=== PATIENT | female | born 1960 | race Caucasian/White ===

== ENCOUNTER 2019-07-07 16:41 | Inpatient (IN) | payer MEDICAID ==
[~2019-07-07] VITALS: Ht 162.6 cm; Wt 136.0 kg
[2019-07-07 18:14] LABS: Basophils # (auto) 0 uL; Basophils % (auto) 0.3 % (0.0-2.0); Eosinophils # (auto) 0.2 uL; Eosinophils % (auto) 3.1 % (0.0-7.0); Hematocrit 47.8 % (36.0-46.0); Lymphocytes # (auto) 1.3 uL; Lymphocytes % (auto) 16.5 % (10.0-50.0); Mean Corpuscular Hemoglobin 29.9 pg (28.0-32.0); Mean Corpuscular Hgb Conc. 33.5 g/dL (32.0-36.0); Mean Corpuscular Volume 89.3 fL (80.0-100.0); Monocytes # (auto) 0.7 uL; Neutrophils # (auto) 5.5 uL; Neutrophils % (auto) 71.1 % (37.0-80.0); Platelet Count (auto) 233 10^3/uL (140-450); Red Blood Cells 5.36 10^6/uL (4.0-5.20); Red Cell Distribution Width 14.8 % (11.8-14.3); White Blood Cell 7.8 10^3/uL (4.4-10.8)
[2019-07-07 18:25] LABS: BUN/Creatinine Ratio 17.2; Calcium 8.8 mg/dL (8.5-10.1); Potassium 4.3 mmol/L (3.5-5.1)
[2019-07-07 18:28] LABS: Bilirubin, Total 0.4 mg/dL (0.2-1.0); Total Protein 7.4 g/dL (6.4-8.2)
[2019-07-07] MEDS ORDERED: FUROSEMIDE 40 MG/4 ML VIAL IV ONE (20:00)
[2019-07-07] MEDS ORDERED: ALBUTEROL SULF 2.5 MG/0.5ML(0.5%) NEB SOLN NEB ONE (20:15)
[2019-07-07] MEDS ORDERED: IPRATROPIUM BROM 0.5 MG/2.5ML INH SOL NEB ONE (20:15)
[2019-07-07] MEDS ORDERED: LEVOFLOXACIN 500MG 100 ML IV ONE (21:45)
[2019-07-07 22:05] LABS: Urine Bacteria NONE SEEN /hpf (None Seen); Urine Blood Negative /uL (Negative); Urine Specific Gravity 1.022 (1.001-1.035); Urine WBC 1 /hpf (0 - 5)
[2019-07-07 22:22] LABS: INR 1.04 (0.9-1.15); Partial Thromboplastin Time 27.9 sec (23.64-32.05)
[2019-07-07] MEDS ORDERED: IOHEXOL 350 MG/ML 100ML IJ ONE (22:45)
[2019-07-08] MEDS ORDERED: ALBUTEROL SULF 2.5 MG/0.5ML(0.5%) NEB SOLN NEB ONE (01:30)
[2019-07-08] MEDS ORDERED: methylPREDNISolone SOD SUCC 125 MG/2 ML VL IV ONE (01:30)
[2019-07-08] MEDS ORDERED: IPRATROPIUM BROM 0.5 MG/2.5ML INH SOL NEB ONE (01:30)
[2019-07-08] MEDS ORDERED: HYDROcodone-ACET 5/325MG TAB PO ONE (02:00)
[2019-07-08] MEDS ORDERED: DEXTROSE (50%) 50ML SYRG IV PRN (02:30)
[2019-07-08] MEDS ORDERED: ONDANSETRON HCL 4 MG/2 ML VIAL IV PRN (02:30)
[2019-07-08 02:35] VITALS: BP 115/84
[2019-07-08] MEDS ORDERED: MORPHINE SULF INJ 2 MG/ML SYRINGE 1ML IV PRN (02:45)
[2019-07-08] MEDS ORDERED: NITROGLYCERIN 0.4 MG SL TAB SL PRN (02:45)
[2019-07-08] MEDS ORDERED: MONT10TA34 OR (05:50)
[2019-07-08] MEDS ORDERED: ALBU108A5 IN (05:50)
[2019-07-08] MEDS ORDERED: IPRA0.03 (05:50)
[2019-07-08] MEDS ORDERED: METF500S PO (05:50)
[2019-07-08] MEDS ORDERED: BACL10TA PO (05:50)
[2019-07-08] MEDS ORDERED: CARV6.25 PO (05:50)
[2019-07-08] MEDS ORDERED: LOSA25TA38 PO (05:50)
[2019-07-08] MEDS ORDERED: FURO1TAB31 PO (05:50)
[2019-07-08] MEDS ORDERED: GLIP5TAB12 PO (05:50)
[2019-07-08] MEDS ORDERED: ASPI81CH43 GT (05:50)
[2019-07-08] MEDS: IPRATROPIUM BROM 0.5 MG/2.5ML INH SOL NEB SCH ×3 (05:52→19:22)
[2019-07-08] MEDS: ALBUTEROL SULF 2.5 MG/0.5ML(0.5%) NEB SOLN NEB SCH ×3 (05:53→19:22)
[2019-07-08] MEDS ORDERED: FUROSEMIDE 20 MG/2 ML VIAL IV SCH (06:00)
[2019-07-08] MEDS: ACCU-CHEK COMFORT CURVE STRIP VI SCH ×4 (06:14→22:59)
[2019-07-08] MEDS: InsuLIN REG 1unit/0.01ml Soln (100units/ml) SC SCH ×4 (06:14→22:59)
[2019-07-08] MEDS: ISOSORBIDE DINITRATE 10 MG TAB PO SCH ×2 (10:48→22:57)
[2019-07-08] MEDS: FAMOTIDINE 20 MG TAB PO SCH ×2 (10:48→22:58)
[2019-07-08] MEDS: ENOXAPARIN SOD 40 MG/0.4 ML SYRINGE SC SCH (10:48)
[2019-07-08] MEDS: CARVEDILOL 3.125 MG TAB PO SCH ×2 (10:49→22:57)
[2019-07-08] MEDS: LOSARTAN POTASSIUM 25 MG TAB PO SCH (10:49)
[2019-07-08] MEDS: ACETAMINOPHEN 325 MG TAB PO PRN (11:38)
[2019-07-08] MEDS: BACLOFEN 10 MG TAB PO PRN ×2 (11:39→22:59)
--- NOTE | 2019-07-08 17:21 | NUR ---
Telemetry admit from ER CHARLINE PHAM admitted to Telemetry unit. Patient oriented to Shaggy Finney, primary RN, unit, room, bed, and unit policies regarding patient care and visiting hours. Patient now on continuous telemetry monitoring, tele box # [id number] and telemetry reading on arrival to unit is [id number]. Patient placed on bedside oxygen, weighed by bedscale and encouraged to call if they need something. All questions and concerns addressed, patient verbalized understanding.
[2019-07-08 17:43] VITALS: BP 124/79
[2019-07-08] MEDS: FUROSEMIDE 40 MG/4 ML VIAL IV SCH (18:09)
--- NOTE | 2019-07-08 19:30 | NUR ---
Opening Shift Note Pt is resting in bed with resp rate even and unlabored. No s/s of any distress noted at this time. Pt is asking about her ordered home medications for this evening and medications discussed and pt verbalizes understanding. POC discussed with pt and pt verbalizes understanding. bed is low, wheels are locked, and call light is with in reach.
[2019-07-08] MEDS ORDERED: HYDR-4833 PO (21:46)
[2019-07-08] MEDS ORDERED: CETI10CA PO (21:46)
[2019-07-08 22:00] VITALS: BP 121/73
--- NOTE | 2019-07-08 22:00 | NUR ---
Pt asking for scheduled home meds , [place] 5/325mg po BID and Zyrtec 10mg po. Hospitalist paged at this time.
[2019-07-08] MEDS: MONTELUKAST SODIUM 10 MG TAB PO SCH (22:58)
[2019-07-08] MEDS: TEMAZEPAM 15 MG CAP PO PRN (22:59)
[2019-07-09] MEDS: IPRATROPIUM BROM 0.5 MG/2.5ML INH SOL NEB SCH ×4 (00:31→19:18)
[2019-07-09] MEDS: ALBUTEROL SULF 2.5 MG/0.5ML(0.5%) NEB SOLN NEB SCH ×4 (00:31→19:18)
[2019-07-09 05:00] VITALS: BP 110/63
[2019-07-09] MEDS: InsuLIN REG 1unit/0.01ml Soln (100units/ml) SC SCH ×4 (05:13→22:01)
[2019-07-09] MEDS: ACCU-CHEK COMFORT CURVE STRIP VI SCH ×4 (05:14→22:01)
[2019-07-09 05:38] LABS: Basophils # (auto) 0 uL; Basophils % (auto) 0.1 % (0.0-2.0); Eosinophils # (auto) 0 uL; Eosinophils % (auto) 0.1 % (0.0-7.0); Hematocrit 50.3 % (36.0-46.0); Hemoglobin 16.7 g/dL (12.2-16.2); Lymphocytes # (auto) 2.3 uL; Lymphocytes % (auto) 25.2 % (10.0-50.0); Mean Corpuscular Hemoglobin 29.6 pg (28.0-32.0); Mean Corpuscular Hgb Conc. 33.3 g/dL (32.0-36.0); Monocytes # (auto) 1.1 uL; Monocytes % (auto) 11.8 % (0.0-12.0); Neutrophils # (auto) 5.7 uL; Neutrophils % (auto) 62.8 % (37.0-80.0); Nucleated Red Blood Cells % 0.1 %; Platelet Count (auto) 266 10^3/uL (140-450); Red Blood Cells 5.66 10^6/uL (4.0-5.20); Red Cell Distribution Width 14.8 % (11.8-14.3); White Blood Cell 9.1 10^3/uL (4.4-10.8)
[2019-07-09 05:55] LABS: BUN/Creatinine Ratio 24.2; Calcium 8.9 mg/dL (8.5-10.1); Potassium 3.8 mmol/L (3.5-5.1)
[2019-07-09] MEDS: FUROSEMIDE 40 MG/4 ML VIAL IV SCH ×2 (06:16→17:58)
[2019-07-09 09:00] VITALS: BP 120/72
[2019-07-09] MEDS: cefTRIAXone 1GM/50ML D5W 50 ML IV SCH (09:48)
--- NOTE | 2019-07-09 10:00 | NUR ---
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 Skin dry, intact and pink on the surrounding areas. Applied barrier cream/Z-guard on the area.
[2019-07-09] MEDS: BUDESONIDE (INHALATION) 0.5 MG/2 ML NEB NEB SCH ×2 (10:35→19:18)
[2019-07-09] MEDS: BACLOFEN 10 MG TAB PO PRN (10:51)
[2019-07-09] MEDS: AZITHROMYCIN 500MG/ 250ML 250 ML IV SCH (10:51)
[2019-07-09] MEDS: ENOXAPARIN SOD 40 MG/0.4 ML SYRINGE SC SCH (10:52)
[2019-07-09] MEDS: ISOSORBIDE DINITRATE 10 MG TAB PO SCH ×2 (10:52→21:59)
[2019-07-09] MEDS: FAMOTIDINE 20 MG TAB PO SCH ×2 (10:53→21:59)
[2019-07-09] MEDS: LOSARTAN POTASSIUM 25 MG TAB PO SCH (10:53)
[2019-07-09] MEDS: CARVEDILOL 3.125 MG TAB PO SCH ×2 (10:54→21:58)
[2019-07-09 12:50] VITALS: BP 93/55
--- NOTE | 2019-07-09 14:45 | NUR ---
Cardiology Consult Dr. Grewal at bedside, orders received.
[2019-07-09 17:00] VITALS: BP 120/59
[2019-07-09 22:00] VITALS: BP 119/73
[2019-07-09] MEDS: MONTELUKAST SODIUM 10 MG TAB PO SCH (22:00)
[2019-07-10] VITALS (7 sets, daily range): BP systolic 113–154; BP diastolic 54–92
[2019-07-10] MEDS: IPRATROPIUM BROM 0.5 MG/2.5ML INH SOL NEB SCH ×4 (00:07→19:22)
[2019-07-10] MEDS: ALBUTEROL SULF 2.5 MG/0.5ML(0.5%) NEB SOLN NEB SCH ×4 (00:07→19:22)
[2019-07-10] MEDS: BUDESONIDE (INHALATION) 0.5 MG/2 ML NEB NEB SCH ×2 (05:56→19:22)
[2019-07-10] MEDS: InsuLIN REG 1unit/0.01ml Soln (100units/ml) SC SCH ×4 (06:00→22:47)
[2019-07-10] MEDS: FUROSEMIDE 40 MG/4 ML VIAL IV SCH ×2 (06:26→17:31)
[2019-07-10] MEDS: ACCU-CHEK COMFORT CURVE STRIP VI SCH ×4 (06:27→22:47)
[2019-07-10] MEDS: FAMOTIDINE 20 MG TAB PO SCH ×2 (09:57→22:45)
[2019-07-10] MEDS: ENOXAPARIN SOD 40 MG/0.4 ML SYRINGE SC SCH (09:57)
[2019-07-10] MEDS: ISOSORBIDE DINITRATE 10 MG TAB PO SCH ×2 (09:58→22:42)
[2019-07-10] MEDS: LOSARTAN POTASSIUM 25 MG TAB PO SCH (09:59)
[2019-07-10] MEDS: CARVEDILOL 3.125 MG TAB PO SCH ×2 (09:59→22:44)
[2019-07-10] MEDS: ACETAMINOPHEN 325 MG TAB PO PRN (10:16)
--- NOTE | 2019-07-10 12:01 | NUR ---
IV removal IV DC'd with clean sterile technique, catheter fully intact. Pressure dressing applied to site. Patient tolerated well. IV insertion IV access obtained, via clean sterile technique by inserting 22 gauge catheter at Right hand after 2 attempt(s). IV secured properly. No trauma to site. Patient tolerated well.
[2019-07-10] MEDS: AZITHROMYCIN 500MG/ 250ML 250 ML IV SCH (12:13)
[2019-07-10] MEDS: cefTRIAXone 1GM/50ML D5W 50 ML IV SCH (12:13)
--- NOTE | 2019-07-10 14:00 | NUR ---
MD ROUNDING MD AT BEDSIDE. ALL QUESTIONS AND CONCERNS ADDRESSED AT THIS TIME.
[2019-07-10] MEDS: HYDROcodone-ACET 5/325MG TAB PO PRN ×2 (18:39→22:43)
--- NOTE | 2019-07-10 20:30 | NUR ---
OPENING NOTE Pt is sitting up talking on the phone. Awake, alert, and oriented x4. RR is even and unlabored. Pt remains on Oxymizer at 5L. Denies any SOB at this time. POC discussed with Pt and Pt verbalized understanding. Bed is locked and in lowest position. Call light is within reach.
[2019-07-10] MEDS: BACLOFEN 10 MG TAB PO PRN (22:42)
[2019-07-10] MEDS: TEMAZEPAM 15 MG CAP PO PRN (22:42)
[2019-07-10] MEDS: MONTELUKAST SODIUM 10 MG TAB PO SCH (22:44)
[2019-07-10] MEDS: FEXOFENADINE HCL 60 MG TAB PO SCH (22:50)
[2019-07-10] MEDS: NYSTATIN TOPICAL POWDER 15GM TOP SCH (23:00)
[2019-07-11] MEDS: IPRATROPIUM BROM 0.5 MG/2.5ML INH SOL NEB SCH ×4 (00:52→19:06)
[2019-07-11] MEDS: ALBUTEROL SULF 2.5 MG/0.5ML(0.5%) NEB SOLN NEB SCH ×4 (00:52→19:06)
[2019-07-11] MEDS: HYDROcodone-ACET 5/325MG TAB PO PRN ×3 (04:00→18:41)
[2019-07-11 04:44] VITALS: BP 114/62
[2019-07-11 05:42] LABS: Basophils # (auto) 0 uL; Basophils % (auto) 0.3 % (0.0-2.0); Eosinophils # (auto) 0.1 uL; Eosinophils % (auto) 1.2 % (0.0-7.0); Hematocrit 48.5 % (36.0-46.0); Hemoglobin 16.1 g/dL (12.2-16.2); Lymphocytes # (auto) 3.7 uL; Lymphocytes % (auto) 37.3 % (10.0-50.0); Mean Corpuscular Hemoglobin 29.4 pg (28.0-32.0); Mean Corpuscular Hgb Conc. 33.1 g/dL (32.0-36.0); Mean Corpuscular Volume 88.8 fL (80.0-100.0); Monocytes # (auto) 0.9 uL; Monocytes % (auto) 8.9 % (0.0-12.0); Neutrophils # (auto) 5.2 uL; Neutrophils % (auto) 52.3 % (37.0-80.0); Platelet Count (auto) 232 10^3/uL (140-450); Red Blood Cells 5.46 10^6/uL (4.0-5.20); Red Cell Distribution Width 14.3 % (11.8-14.3)
[2019-07-11 06:00] LABS: Chloride 101 mmol/L (98-107); Potassium 3.6 mmol/L (3.5-5.1); Sodium 137 mmol/L (136-145)
[2019-07-11 06:09] LABS: Anion Gap 4 (5-15); BUN/Creatinine Ratio 29.6; Blood Urea Nitrogen 24 mg/dL (7-18); Calcium 8.4 mg/dL (8.5-10.1); Carbon Dioxide 32 mmol/L (21-32); GFR African American 93 mL/min; GFR Non-African American 77 mL/min; Glucose 149 mg/dL (74-106)
[2019-07-11] MEDS: BUDESONIDE (INHALATION) 0.5 MG/2 ML NEB NEB SCH ×2 (06:10→19:06)
[2019-07-11] MEDS: InsuLIN REG 1unit/0.01ml Soln (100units/ml) SC SCH ×3 (06:41→17:26)
[2019-07-11] MEDS: FUROSEMIDE 40 MG/4 ML VIAL IV SCH ×2 (06:41→17:30)
[2019-07-11] MEDS: ACCU-CHEK COMFORT CURVE STRIP VI SCH ×3 (06:42→17:27)
--- NOTE | 2019-07-11 07:25 | NUR ---
Opening Shift Note Assumed care of patient, awake and alert. No S/S of distress/SOB or pain. Instructed on POC and to call for assist PRN, will continue to monitor for changes Q1hr and PRN.
[2019-07-11 09:00] VITALS: BP 127/71
[2019-07-11] MEDS: ENOXAPARIN SOD 40 MG/0.4 ML SYRINGE SC SCH (09:28)
[2019-07-11] MEDS: cefTRIAXone 1GM/50ML D5W 50 ML IV SCH (09:28)
[2019-07-11] MEDS: FAMOTIDINE 20 MG TAB PO SCH ×2 (09:28→21:51)
[2019-07-11] MEDS: LOSARTAN POTASSIUM 25 MG TAB PO SCH (09:29)
[2019-07-11] MEDS: CARVEDILOL 3.125 MG TAB PO SCH ×2 (09:29→21:50)
[2019-07-11] MEDS: ISOSORBIDE DINITRATE 10 MG TAB PO SCH ×2 (09:29→21:51)
[2019-07-11] MEDS: FEXOFENADINE HCL 60 MG TAB PO SCH ×2 (09:30→21:50)
[2019-07-11] MEDS: AZITHROMYCIN 500MG/ 250ML 250 ML IV SCH (09:30)
--- NOTE | 2019-07-11 11:15 | NUR ---
RT NOTE: WENT TO PTS ROOM TO ADMINISTER BREATHING TX, PT STATED THAT SHE DID NOT WANT THE TX AT THIS TIME. HR 51, RR 16, SPO2 93% ON 4L OXYMIZER. NO S/S OF SOB WILL CONTINUE TO MONITOR PT.
[2019-07-11] MEDS: NYSTATIN TOPICAL POWDER 15GM TOP SCH ×2 (12:02→21:52)
--- NOTE | 2019-07-11 12:42 | NUR ---
NUTRITION ASSESSMENT NOTES Please refer to link notes of nutrition screen form filed under the intervention section of the plan of care for further details. Est. Needs based on AdBW (73 kg): 1450 kcal to 1850 kcal (20-25 kcal/kgAdBW), 73 gms to 88 gms pro (1.0-1.2 gms/kgAdBW). Will continue to monitor pertinent labs and reassess nutrient need prn Thank you. Addendum: 07/11/19 at [address] Amended: Links added.
[2019-07-11 13:00] VITALS: BP 112/68
--- NOTE | 2019-07-11 14:28 | NUR ---
MD RJ BHANDARI AT BEDSIDE. ALL QUESTIONS AND CONCERNS ADDRESSED AT THIS TIME
[2019-07-11] MEDS ORDERED: methylPREDNISolone SOD SUCC 125 MG/2 ML VL IV ONE (14:30)
[2019-07-11 17:00] VITALS: BP 106/57
--- NOTE | 2019-07-11 19:11 | NUR ---
Respiratory note: PLACED PT BACK ON 4L OXYMIZER AT THIS TIME DUE TO LOW O2 SAT. PT STATES SHE REMOVED OXYMIZER TO USE THE RESTROOM
--- NOTE | 2019-07-11 19:35 | NUR ---
Opening Shift Note Assumed care of patient, AOx4. No S/S of distress/SOB. Fall and safety precautions in place. Call light within reach. Instructed on POC and to call for assist PRN, will continue to monitor for changes Q1hr and PRN.
[2019-07-11] MEDS: methylPREDNISolone SOD SUCC 40 MG/ML VL IV SCH (21:50)
[2019-07-11] MEDS: MONTELUKAST SODIUM 10 MG TAB PO SCH (21:52)
[2019-07-11 22:09] VITALS: BP 135/81
[2019-07-11] MEDS: TEMAZEPAM 15 MG CAP PO PRN (22:16)
[2019-07-11] MEDS: BACLOFEN 10 MG TAB PO PRN (22:16)
[2019-07-12] MEDS: ACCU-CHEK COMFORT CURVE STRIP VI SCH ×4 (00:37→17:45)
[2019-07-12] MEDS: InsuLIN REG 1unit/0.01ml Soln (100units/ml) SC SCH ×4 (00:37→17:54)
[2019-07-12] MEDS: IPRATROPIUM BROM 0.5 MG/2.5ML INH SOL NEB SCH ×4 (00:49→18:23)
[2019-07-12] MEDS: ALBUTEROL SULF 2.5 MG/0.5ML(0.5%) NEB SOLN NEB SCH ×4 (00:49→18:23)
[2019-07-12] MEDS: HYDROcodone-ACET 5/325MG TAB PO PRN ×3 (01:09→20:54)
[2019-07-12 04:44] VITALS: BP 118/58
[2019-07-12 05:04] LABS: Basophils # (auto) 0 uL; Basophils % (auto) 0.5 % (0.0-2.0); Eosinophils # (auto) 0 uL; Hematocrit 48.9 % (36.0-46.0); Hemoglobin 16.5 g/dL (12.2-16.2); Lymphocytes % (auto) 11.7 % (10.0-50.0); Mean Corpuscular Hemoglobin 29.9 pg (28.0-32.0); Mean Corpuscular Hgb Conc. 33.8 g/dL (32.0-36.0); Mean Corpuscular Volume 88.4 fL (80.0-100.0); Monocytes # (auto) 0.1 uL; Monocytes % (auto) 1.2 % (0.0-12.0); Neutrophils # (auto) 7.3 uL; Neutrophils % (auto) 86.6 % (37.0-80.0); Nucleated Red Blood Cells % 0.1 %; Platelet Count (auto) 240 10^3/uL (140-450); Red Blood Cells 5.53 10^6/uL (4.0-5.20); Red Cell Distribution Width 14.3 % (11.8-14.3); White Blood Cell 8.4 10^3/uL (4.4-10.8)
[2019-07-12 05:23] LABS: BUN/Creatinine Ratio 26.5; Potassium 3.9 mmol/L (3.5-5.1)
[2019-07-12] MEDS: FUROSEMIDE 40 MG/4 ML VIAL IV SCH (05:28)
[2019-07-12] MEDS: methylPREDNISolone SOD SUCC 40 MG/ML VL IV SCH ×3 (05:28→21:31)
[2019-07-12] MEDS: BUDESONIDE (INHALATION) 0.5 MG/2 ML NEB NEB SCH ×2 (06:08→18:23)
--- NOTE | 2019-07-12 07:30 | NUR ---
Opening Shift Note Assuming care of patient at this time. Patient denies pain. Patient shows no signs or symptoms of distress or shortness of breath. Bed is locked and lowered with side rails up x2. Instructed patient on the plan of care for today and to call for assistance as needed. Call light within reach. Will continue to round hourly and as needed.
[2019-07-12 09:00] VITALS: BP 148/75
[2019-07-12] MEDS: cefTRIAXone 1GM/50ML D5W 50 ML IV SCH (10:18)
[2019-07-12] MEDS: FEXOFENADINE HCL 60 MG TAB PO SCH ×2 (10:19→21:32)
[2019-07-12] MEDS: ISOSORBIDE DINITRATE 10 MG TAB PO SCH ×2 (10:19→21:54)
[2019-07-12] MEDS: LOSARTAN POTASSIUM 25 MG TAB PO SCH (10:19)
[2019-07-12] MEDS: CARVEDILOL 3.125 MG TAB PO SCH (10:20)
[2019-07-12] MEDS: FAMOTIDINE 20 MG TAB PO SCH ×2 (10:21→21:32)
[2019-07-12] MEDS: ENOXAPARIN SOD 40 MG/0.4 ML SYRINGE SC SCH (10:24)
[2019-07-12] MEDS: NYSTATIN TOPICAL POWDER 15GM TOP SCH ×2 (10:35→21:33)
[2019-07-12] MEDS: AZITHROMYCIN 500MG/ 250ML 250 ML IV SCH (11:12)
--- NOTE | 2019-07-12 11:33 | NUR ---
at station Dr. Lombardi at station discussing plan of care with this RN. ABGS on room air to be ordered for tomorrow.
[2019-07-12] MEDS ORDERED: LOSARTAN POTASSIUM 25 MG TAB PO ONE (11:45)
--- NOTE | 2019-07-12 12:55 | NUR ---
Tele Monitor Call sow farm technician called at this time. Patient had a run of V-tac. One of patient's leads was not put on correctly. Notified dairy technician and Dr. Lombardi. No new orders given at this time.
[2019-07-12 13:08] VITALS: BP 103/62
[2019-07-12] MEDS ORDERED: INSULIN LANTUS (GLARGINE) 1 /0.01ml (100units/ml) SC ONE (14:15)
[2019-07-12 17:04] VITALS: BP 116/72
--- NOTE | 2019-07-12 19:36 | NUR ---
Closing Shift Note Patient resting in bed. No distress noted. Report given. Will endorse care to the night auditor RN.
[2019-07-12] MEDS: MONTELUKAST SODIUM 10 MG TAB PO SCH (21:33)
--- NOTE | 2019-07-12 21:57 | NUR ---
RESPIRATORY CULTURE SENT Respiratory culture sent to lab.
[2019-07-12 22:58] VITALS: BP 112/63
[2019-07-13] MEDS: InsuLIN REG 1unit/0.01ml Soln (100units/ml) SC SCH ×3 (00:04→12:00)
[2019-07-13] MEDS: ACCU-CHEK COMFORT CURVE STRIP VI SCH ×3 (00:04→12:00)
[2019-07-13] MEDS: ALBUTEROL SULF 2.5 MG/0.5ML(0.5%) NEB SOLN NEB SCH ×3 (01:21→11:43)
[2019-07-13] MEDS: IPRATROPIUM BROM 0.5 MG/2.5ML INH SOL NEB SCH ×3 (01:21→11:43)
[2019-07-13 05:25] VITALS: BP 111/58
[2019-07-13] MEDS: methylPREDNISolone SOD SUCC 40 MG/ML VL IV SCH (05:25)
[2019-07-13] MEDS: BUDESONIDE (INHALATION) 0.5 MG/2 ML NEB NEB SCH (06:13)
[2019-07-13] MEDS ORDERED: INSULIN LANTUS (GLARGINE) 1 /0.01ml (100units/ml) SC SCH (07:00)
--- NOTE | 2019-07-13 07:17 | NUR ---
Opening Shift Note Assumed care of patient from second shift supervisor nurse. Patient alert and oriented x4, no signs of distress note. patient was updated on the plan of care and verbalizes understanding. Bed in the lowest position, side rails upx3, call light in reach. Patient was encouraged to call for assistance.
[2019-07-13] MEDS: cefTRIAXone 1GM/50ML D5W 50 ML IV SCH (08:44)
[2019-07-13] MEDS: HYDROcodone-ACET 5/325MG TAB PO PRN (08:44)
[2019-07-13 09:00] VITALS: BP 143/94
[2019-07-13] MEDS ORDERED: LOSARTAN POTASSIUM 50 MG TAB PO SCH (10:00)
[2019-07-13] MEDS ORDERED: FUROSEMIDE 40 MG/4 ML VIAL IV SCH (10:00)
[2019-07-13] MEDS: FAMOTIDINE 20 MG TAB PO SCH (10:28)
[2019-07-13] MEDS: ENOXAPARIN SOD 40 MG/0.4 ML SYRINGE SC SCH (10:28)
[2019-07-13] MEDS: AZITHROMYCIN 500MG/ 250ML 250 ML IV SCH (10:28)
[2019-07-13] MEDS: NYSTATIN TOPICAL POWDER 15GM TOP SCH (10:28)
[2019-07-13] MEDS: ISOSORBIDE DINITRATE 10 MG TAB PO SCH (10:28)
[2019-07-13] MEDS: FEXOFENADINE HCL 60 MG TAB PO SCH (10:28)
--- NOTE | 2019-07-13 10:32 | NUR ---
Hospitalist at bedside Dr. Lombardi at bedside, new orders received and carried out.
--- NOTE | 2019-07-13 10:37 | NUR ---
Patient ambulating Patient ambulated the halls while on Pulse Ox. Patient tolerated well.
[2019-07-13] MEDS ORDERED: MONT10TA23 PO (11:43)
[2019-07-13 13:00] VITALS: BP 114/56
[2019-07-13] MEDS ORDERED: AMOX500T86 PO (13:09)
[2019-07-13] MEDS ORDERED: LOSA-69 PO (13:09)
[2019-07-13] MEDS ORDERED: glipiZIDE 5 MG TAB PO ONE (13:15)
--- NOTE | 2019-07-13 15:56 | NUR ---
D/C Planning Per consult for home O2 at 2 l/min via nasal canula. Contact [facility]:( [phone]) Fax:) faxed medical records. Per Freddie from [facility] oxygen will be deliver to bedside between 16:00-18:00 and concentrate oxygen will be deliver to patient home. Informed GENNY Jernigan. Addendum: 07/13/19 at 1606 by MATTI ISAACS Amended: Links added.
[2019-07-13 17:00] VITALS: BP 132/76
[2019-07-13 17:42] VITALS: BP 132/76
--- NOTE | 2019-07-13 18:55 | NUR ---
Discharge Discharge instructions given as ordered. Encourage to follow up with PMD as instructed. All questions and concerns addressed. Patient verbalized understanding. Medication reconciliation form completed and copy given to patient. IV removed with catheter intact, pressure dressing applied, patient tolerated well. Telemetry unit returned to ICU. Patient taken to vehicle via wheelchair with all personal belongings, accompanied by staff and son, No distress noted at time of departure.
[2019-07-14] MEDS ORDERED: AZITHROMYCIN 250 MG TAB PO SCH (10:00)
== END 2019-07-13 18:54 | disposition home or self-care (01) | DRG 140 ==
LOC: EDBD 16:41 → ER 16:47 → TELE 16:48 → TELE-CENTR 07-08 17:32
PROVIDERS: ADMIT Nurse Practitioner; ATTEND Internal Medicine
DX: J44.1 Chronic obstructive pulmonary disease with (acute) exacerbation (principal); J96.20 Acute and chronic respiratory failure, unspecified whether with hypoxia or hypercapnia; I50.33 Acute on chronic diastolic (congestive) heart failure; J18.9 Pneumonia, unspecified organism; J45.902 Unspecified asthma with status asthmaticus; E11.21 Type 2 diabetes mellitus with diabetic nephropathy; E44.1 Mild protein-calorie malnutrition; E66.2 Morbid (severe) obesity with alveolar hypoventilation; I11.0 Hypertensive heart disease with heart failure; J44.0 Chronic obstructive pulmonary disease with (acute) lower respiratory infection; E11.9 Type 2 diabetes mellitus without complications; K76.0 Fatty (change of) liver, not elsewhere classified; J20.9 Acute bronchitis, unspecified; Z68.43 Body mass index [BMI] 50.0-59.9, adult; Z88.8 Allergy status to other drugs, medicaments and biological substances; Z90.49 Acquired absence of other specified parts of digestive tract
CPT/HCPCS: 36415; 36600; 71045; 71046; 71275; 80048; 80053; 81001; 82805; 82962; 83036; 83880; 84443; 84484; 85025; 85379; 85610; 85730; 87040; 87070; 87205; 93005; 93306; 94640; 96365; 96367; 96375; G0378; J0696; J1815; J1956